=== PATIENT | female | born 1965 | race Caucasian/White ===

== ENCOUNTER 2017-03-03 17:38 | Observation (INO) | payer MEDICAID, OTHER ==
[~2017-03-03] VITALS: Ht 162.6 cm; Wt 103.0 kg
[~2017-03-03 17:38] MED LIST: ALBU6.7H INH; BACL10TA PO; DICL75 PO
[2017-03-03 17:40] VITALS: BP 172/74; PULSE 64; RESP 20; TEMP 98.9; O2SAT 98
--- NOTE | 2017-03-03 19:11 | RADRPT ---
EXAM DATE/TIME: 03/03/2017 18:47 [facility] COMPARISON: CHEST SINGLE AP, May 13, 2016, 22:09. INDICATIONS : Cough; flu like symptoms. MEDICAL HISTORY : None. SURGICAL HISTORY : None. ENCOUNTER: Initial ACUITY: 1 week PAIN SCORE: 0/10 LOCATION: Bilateral chest FINDINGS: A single view of the chest demonstrates the lungs to be symmetrically aerated without evidence of mas s, infiltrate or effusion. The cardiomediastinal contours are unremarkable. Osseous structures are intact. CONCLUSION: No acute disease. No significant change has occurred. Coleman Saavedra MD on March 03, 2017 at 19:01 Board Certified Radiologist. This report was verified electronically.
[2017-03-03] MEDS ORDERED: NITROGLYCERIN 0.4 MG SL 25 TABS/BTL SL ONE (22:00)
[2017-03-03] MEDS ORDERED: ASPIRIN 81 MG CHEW TAB CHEW ONE (22:00)
[2017-03-03] MEDS ORDERED: SODIUM CHLORID 0.9% 500 ML INJ 500 ML IV ONE (22:00)
[2017-03-03] MEDS ORDERED: MECLIZINE HCL 25 MG TAB PO ONE (22:00)
[2017-03-03 22:18] LABS: AUTOMATED NEUTROPHIL # 6.1 TH/MM3 (1.8-7.7); BASOPHIL % 0.5 % (0.0-2.0); EOSINOPHIL # 0.1 TH/MM3 (0-0.4); EOSINOPHIL % 1.4 % (0.0-4.0); HEMATOCRIT 40.6 % (35.0-46.0); HEMO FLAGS DIFF FINAL; LYMPH % 25.8 % (9.0-44.0); LYMPHOCYTE # 2.3 TH/MM3 (1.0-4.8); MEAN CELL VOLUME 80.8 FL (80.0-100.0); MEAN CORPUSCULAR HEMOGLOBIN 27.3 PG (27.0-34.0); MEAN CORPUSCULAR HGB CONC 33.8 % (32.0-36.0); MONO % 4.7 % (0.0-8.0); NEUT % 67.6 % (16.0-70.0); PLATELET COUNT 224 TH/MM3 (150-450); RED BLOOD COUNT 5.02 MIL/MM3 (4.00-5.30)
[2017-03-03 22:41] LABS: ANION GAP 6 MEQ/L (5-15); BICARBONATE 29.9 MEQ/L (21.0-32.0); BLOOD UREA NITROGEN 13 MG/DL (7-18); CHLORIDE 102 MEQ/L (98-107); GLOMERULAR FILTRATION RATE 107 ML/MIN (>89); SODIUM (NA) 138 MEQ/L (136-145)
[2017-03-03 22:45] LABS: CREATINE KINASE 102 U/L (26-192)
[2017-03-03 22:58] LABS: CKMB 0.8 NG/ML (0.5-3.6)
[2017-03-03] MEDS ORDERED: hydrALAZINE HCL 20 MG/ML VIAL IV PUSH ONE (23:00)
[2017-03-03 23:10] VITALS: BP 192/75; PULSE 42; RESP 18; O2SAT 99
[2017-03-03 23:15] VITALS: BP 188/74; PULSE 43; RESP 18; O2SAT 99
[2017-03-03] MEDS ORDERED: ACETAMINOPHEN 500 MG CPLT PO PRN (23:45)
[2017-03-03] MEDS ORDERED: ACETAMINOPHEN/HYDROcodone 325 MG/7.5 MG TAB PO PRN (23:45)
[2017-03-03] MEDS ORDERED: MORPHINE SULFATE 4 MG/ML INJ IV PUSH ONE (23:45)
[2017-03-03] MEDS ORDERED: SODIUM CHLORIDE 0.9% FLUSH 10 ML FLUSH IV FLUSH PRN (23:45)
--- NOTE | 2017-03-03 23:45 | PD ---
HPI Chief Complaint: Chest Pain Time Seen by Provider: 21:40 Travel History International Travel<30 days: No Contact w/Intl Traveler<30days: No Traveled to known affect area: No History of Present Illness HPI Patient is a 51-year-old female who comes in complaining of chest pain. She says she has had a cough for a few days with some shortness of breath. She says today she started to have episodes of dizziness and a few hours ago she developed some left-sided chest pain. She says she was sick last week and had a fever about a week ago, but none since then. She denies nausea or vomiting. She denies any abdominal pain. PFSH Past Medical History Hx Anticoagulant Therapy: No Asthma: Yes Cardiovascular Problems: Yes (bradycardiac) Chemotherapy: No Cerebrovascular Accident: No Diabetes: No Diminished Hearing: No Respiratory: Yes (ASTHMA) Tetanus Vaccination: < 5 Years Influenza Vaccination: No ?: Not Menopausal: No : 9 Para: 6 Miscarriage: 2 : 1 Past Surgical History Appendectomy: Yes Section: Yes (X2) Gynecologic Surgery: Yes (btl 7 years ago) Hysterectomy: Yes Social History Alcohol Use: Yes (social) Tobacco Use: No Substance Use: No Allergies-Medications (Allergen,Severity, Reaction): Coded Allergies: No Known Allergies (Verified , 05/13/16) Reported Meds & Prescriptions Reported Meds & Active Scripts Active No Active Prescriptions or Reported Medications Review of Systems Except as stated in HPI: all other systems reviewed are Neg Eyes: No: Blurred Vision HENT: No: Headaches, Lightheadedness Cardiovascular: Positive: Chest Pain or Discomfort Respiratory: Positive: Cough, Shortness of Breath Gastrointestinal: No: Vomiting, Abdominal Pain Skin: No Rash, No Change in Pigmentation Neurologic: Positive: Weakness Physical Exam Narrative GENERAL: Awake and alert, in no acute distress. SKIN: Focused skin assessment warm/dry. HEAD: Atraumatic. Normocephalic. EYES: Pupils equal and round. No scleral icterus. Extraocular movements intact. ENT: Mucous membranes pink and moist. NECK: Trachea midline. No JVD. CARDIOVASCULAR: Regular rate and rhythm. No murmur appreciated. RESPIRATORY: No accessory muscle use. Clear to auscultation. Breath sounds equal bilaterally. GASTROINTESTINAL: Abdomen soft, non-tender, nondistended. MUSCULOSKELETAL: No obvious deformities. No clubbing. No cyanosis. No edema. NEUROLOGICAL: Awake and alert. No obvious cranial nerve deficits. Motor grossly within normal limits. Normal speech. PSYCHIATRIC: Appropriate mood and affect; insight and judgment normal. Data Data Last Documented VS Vital Signs Date Time Temp Pulse Resp B/P Pulse Ox O2 Delivery O2 Flow Rate FiO2 03/03/17 23:15 43 18 188/74 99 03/03/17 21:31 Room Air 03/03/17 17:40 98.9 Orders Electrocardiogram (03/03/17 18:25) Complete Blood Count With Diff (03/03/17 18:25) Basic Metabolic Panel (Bmp) (03/03/17 18:25) Ckmb (Isoenzyme) Profile (03/03/17 18:25) Troponin I (03/03/17 18:25) Chest, Single Ap (03/03/17 18:25) Iv Access Insert/Monitor (03/03/17 18:25) Ecg Monitoring (03/03/17 18:25) Oxygen Administration (03/03/17:25) Oximetry (03/03/17 18:25) Meclizine (Antivert) (03/03/17 22:00) Aspirin Chew (Aspirin Chew) (03/03/17 22:00) Sodium Chlorid 0.9% 500 Ml Inj (Ns 500 M (03/03/17 22:00) Nitroglycerin Sl (Nitrostat Sl) (03/03/17 22:00) CKMB (03/03/17 21:55) CKMB% (03/03/17 21:55) Hydralazine Inj (Apresoline Inj) (03/03/17 23:00) Activity Bed Rest With Brp (03/03/17 23:43) Vital Signs (Adult) Q4H (03/03/17 23:43) Cardiac Rhythm .As Directed (03/03/17 23:43) ^ Notify Dr: Other .PRN (03/03/17 23:43) ^ Notify Parameters (03/03/17 23:43) Resp Oxygen Nasal Cannula (03/03/17 ) Diet Heart Healthy (03/04/17 Breakfast) Ckmb (Isoenzyme) Profile (03/04/17 01:00) Ckmb (Isoenzyme) Profile (03/04/17 04:00) Troponin I (03/04/17 01:00) Troponin I (03/04/17 04:00) Electrocardiogram (03/04/17 01:00) Electrocardiogram (03/04/17 04:00) ^ Obtain (03/03/17 23:43) Sodium Chloride 0.9% Flush (Ns Flush) (03/03/17 23:45) Sodium Chloride 0.9% Flush (Ns Flush) (03/04/17 09:00) Acetaminophen (Tylenol) (03/03/17 23:45) Acetamin-Hydrocod 325-7.5 Mg ([place] 7.5 (03/03/17 23:45) Maxillofacial Prosthetics Dentist / Telemetry IDA.Q8H (03/03/17 23:43) Admit Order (Ed Use Only) (03/03/17 ) Morphine Inj (Morphine Inj) (03/03/17 23:45) Labs Laboratory Tests Test 03/03/17 21:55 White Blood Count 9.0 TH/MM3 Red Blood Count 5.02 MIL/MM3 Hemoglobin 13.7 GM/DL Hematocrit 40.6 % Mean Corpuscular Volume 80.8 FL Mean Corpuscular Hemoglobin 27.3 PG Mean Corpuscular Hemoglobin 33.8 % Concent Red Cell Distribution Width 15.0 % Platelet Count 224 TH/MM3 Mean Platelet Volume 9.2 FL Neutrophils (%) (Auto) 67.6 % Lymphocytes (%) (Auto) 25.8 % Monocytes (%) (Auto) 4.7 % Eosinophils (%) (Auto) 1.4 % Basophils (%) (Auto) 0.5 % Neutrophils # (Auto) 6.1 TH/MM3 Lymphocytes # (Auto) 2.3 TH/MM3 Monocytes # (Auto) 0.4 TH/MM3 Eosinophils # (Auto) 0.1 TH/MM3 Basophils # (Auto) 0.0 TH/MM3 CBC Comment DIFF FINAL Differential Comment Sodium Level 138 MEQ/L Potassium Level 4.0 MEQ/L Chloride Level 102 MEQ/L Carbon Dioxide Level 29.9 MEQ/L Anion Gap 6 MEQ/L Blood Urea Nitrogen 13 MG/DL Creatinine 0.59 MG/DL Estimat Glomerular Filtration 107 ML/MIN Rate Random Glucose 85 MG/DL Calcium Level 9.2 MG/DL Total Creatine Kinase 102 U/L Creatine Kinase MB 0.8 NG/ML Troponin I LESS THAN 0.02 NG/ML [facility] Medical Decision Making Medical Screen Exam Complete: Yes Emergency Medical Condition: Yes Interpretation(s) ECG shows sinus bradycardia, no ST elevation or depression Differential Diagnosis ACS versus pneumonia versus NSTEMI versus STEMI Narrative Course Patient is a 51-year-old female comes in complaining of dizziness, chest pain, cough, shortness of breath. Exam shows no neurologic abnormalities. IV established, labs sent. 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 Labs show no acute abnormalities. Chest x-ray performed shows no acute abnormalities. Patient given aspirin. Given meclizine. Patient continues to have chest pain. Given 1 dose of nitroglycerin as well as pain medicine. Given hydralazine for high blood pressure. Patient placed in observation for further management. Diagnosis Primary Impression: Chest pain Qualified Code: R07.9 - Chest pain, unspecified type Admitting Information Admitting Physician Requests: Observation Scripts No Active Prescriptions or Reported Meds Condition: Stable Jenise Bird MD Mar 03, 2017 23:45
[2017-03-03 23:54] VITALS: O2SAT 97
[2017-03-04 01:30] VITALS: PULSE 41
[2017-03-04 01:58] LABS: CREATINE KINASE 77 U/L (26-192)
[2017-03-04 04:00] VITALS: BP 116/59; PULSE 47; RESP 20; TEMP 97.1; O2SAT 96
[2017-03-04 05:05] LABS: CREATINE KINASE 90 U/L (26-192)
[2017-03-04] MEDS ORDERED: KETOROLAC TROMETHAMINE 30 MG/ML (IVP) VIAL IVP ONE (07:45)
[2017-03-04 08:09] VITALS: BP 124/60; PULSE 53; RESP 20; TEMP 97.3; O2SAT 93
--- NOTE | 2017-03-04 08:22 | HHI.HP ---
HPI Primary Care Physician No Primary Care Physician Chief Complaint Chest pain History of Present Illness This is a 51-year-old female that presents to the ED via private vehicle complaining of developing a left-sided chest discomfort while she was doing housecleaning. This began yesterday afternoon. She also felt dizzy and nauseous. The discomfort would usually last about 5 seconds, the longest episode lasted about 10 seconds. She was not short of breath and denies diaphoresis. Denies history of CAD. 2 weeks ago she had a cold and had been coughing but that has since resolved. Review of Systems General: Patient denies fevers, chills recent, and recent travel HEENT: Patient denies headache, sore throat, difficulty swallowing. Cardiovascular: Has the chest discomfort as mentioned above. Denies sensation of heart beating rapidly or irregularly. No syncope. Respiratory: Denies shortness of breath or inspirational chest discomfort. Denies coughing wheezing or hemoptysis. GI: Patient was nauseous. Patient denies vomiting, diarrhea, abdominal pain, bloody stools. Musculoskeletal: Patient denies joint pain or edema. Denies calf pain or edema. Neurovascular: Patient denies numbness, tingling, weakness in extremities. Denies headache. She was little dizzy initially with her symptoms yesterday. Endocrine: Denies polyuria and polydipsia. Hematologic: Denies easy bruising. Skin: Denies rash or itching. Past Family Social History Allergies: Coded Allergies: No Known Allergies (Verified , 05/13/16) Past Medical History Denies hypertension, hyperlipidemia, diabetes, and CAD. Past Surgical History , appendectomy, tubal ligation, and hysterectomy. Reported Medications Reported Meds & Active Scripts Active No Active Prescriptions or Reported Medications Active Ordered Medications Current Medications Medications (Trade) Dose Ordered Sig/Graciela Route Start Time Stop Time Status Last Admin (NS Flush) 2 ml UNSCH PRN IV FLUSH 03/03/17 23:45 (NS Flush) 2 ml BID IV FLUSH 03/04/17 09:00 (Tylenol) 500 mg Q4H PRN PO 03/03/17 23:45 ([place] 7.5-325 Mg) 1 tab Q4H PRN PO 03/03/17 23:45 03/04/17 04:01 Family History Denies family history of CAD. Social History Patient does not smoke, use alcohol or illicit drugs. Physical Exam Vital Signs Vital Signs Date Time Temp Pulse Resp B/P Pulse Ox O2 Delivery O2 Flow Rate FiO2 03/04/17 08:09 97.3 53 20 124/60 93 03/04/17 05:03 18 03/04/17 04:00 97.1 47 20 116/59 96 03/04/17 01:30 41 03/03/17 23:54 97 03/03/17 23:15 43 18 188/74 99 03/03/17 23:10 42 18 192/75 99 03/03/17 21:31 99 Room Air 03/03/17 21:25 100 Room Air 03/03/17 17:40 98.9 64 20 172/74 98 Room Air Physical Exam GENERAL: This is a well-nourished, well-developed patient, in no apparent distress. Patient speaks in clear complete sentences. Patient is pleasant. HEENT: Head is atraumatic and normocephalic. Neck is supple without lymphadenopathy and trachea is midline. No JVD or carotid bruits. CARDIOVASCULAR: Regular rate and rhythm without murmurs, gallops, or rubs. RESPIRATORY: There is reproducible left upper chest wall tenderness when palpating the area. This is similar to the discomfort she has been having. Clear to auscultation. Breath sounds equal bilaterally. No wheezes, rales, or rhonchi. No use of accessory muscles. GASTROINTESTINAL: Abdomen is nontender, nondistended. Abdomen soft. No obvious pulsatile mass or bruit. No CVA tenderness. Strong femoral pulses bilaterally. Normal bowel sounds in all quadrants. MUSCULOSKELETAL: Patient is moving upper and lower extremities freely. No calf tenderness or edema, no Homans sign. Strong pulses in upper and lower extremities. NEUROLOGICAL: Patient is alert and oriented. Cranial nerves 2-12 are grossly intact. No focal deficits and speech is clear. SKIN: No rash and turgor is normal Laboratory Laboratory Tests Test 03/03/17 03/04/17 03/04/17 21:55 01:00 03:55 White Blood Count 9.0 Red Blood Count 5.02 Hemoglobin 13.7 Hematocrit 40.6 Mean Corpuscular Volume 80.8 Mean Corpuscular Hemoglobin 27.3 Mean Corpuscular Hemoglobin 33.8 Concent Red Cell Distribution Width 15.0 Platelet Count 224 Mean Platelet Volume 9.2 Neutrophils (%) (Auto) 67.6 Lymphocytes (%) (Auto) 25.8 Monocytes (%) (Auto) 4.7 Eosinophils (%) (Auto) 1.4 Basophils (%) (Auto) 0.5 Neutrophils # (Auto) 6.1 Lymphocytes # (Auto) 2.3 Monocytes # (Auto) 0.4 Eosinophils # (Auto) 0.1 Basophils # (Auto) 0.0 CBC Comment DIFF FINAL Differential Comment Sodium Level 138 Potassium Level 4.0 Chloride Level 102 Carbon Dioxide Level 29.9 Anion Gap 6 Blood Urea Nitrogen 13 Creatinine 0.59 Estimat Glomerular Filtration 107 Rate Random Glucose 85 Calcium Level 9.2 Total Creatine Kinase 102 77 90 Creatine Kinase MB 0.8 Troponin I LESS THAN 0.02 LESS THAN 0.02 LESS THAN 0.02 Result Diagram: 03/03/17215403/03/172154 Imaging Last 24 hours Impressions Chest X-Ray 03/03/17 182 Signed Impressions: Service Date/Time: Friday, March 03, 2017 18:47 - CONCLUSION: No acute disease. No significant change has occurred. Coleman Saavedra MD Course EKGs have been sinus bradycardia without significant ST segment depressions or elevations. Assessment and Plan Assessment and Plan * Atypical chest pain: Patient has had serial cardiac enzymes and EKGs for ruling out purposes. She has been seen by Dr. Sonu Camacho of cardiology in the chest pain center. She will undergo a Lexiscan myocardial perfusion stress test and will likely be discharged home if the stress test were to be nonischemic. Rhett Wolf Mar 04, 2017 08:22
[2017-03-04 08:50] VITALS: O2SAT 94
[2017-03-04] MEDS ORDERED: SODIUM CHLORIDE 0.9% FLUSH 10 ML FLUSH IV FLUSH SCH (09:00)
[2017-03-04] MEDS ORDERED: REGADENOSON INJ 0.4 MG/5 ML SYR ONE (11:01)
--- NOTE | 2017-03-04 12:28 | RADRPT ---
EXAM DATE/TIME: 03/04/2017 10:38 [facility] COMPARISON: No previous studies available for comparison. INDICATIONS : Angina. DOSE: 35 mCi Tc99m Myoview at stress. 10.9 mCi Tc99m Myoview at rest. 0.4 mg Lexiscan STRESS SYMPTOMS: Burning sensation in stomach. EJECTION FRACTION: 55% MEDICAL HISTORY : Hypertension. SURGICAL HISTORY : None ENCOUNTER: Initial ACUITY: 1 day PAIN SCALE: 2/10 LOCATION: Left chest pain TECHNIQUE: The patient underwent pharmacologic stress with infusion of prescribed dose. Continuous ECG tracing was monitored during stress. Gated SPECT imaging was performed after stress and conventional SPECT i maging was performed at rest. The examination was performed on a SPECT/CT scanner, both attenuation and non-corrected datasets were reviewed. FINDINGS: DISTRIBUTION: The maximum perfused segment at stress is in the posterior basal wall. PERFUSION STUDY: There is mildly diminished relative perfusion involving the apex. No evidence of ischemia. GATED STUDY: There is intact wall motion and thickening without hypokinetic or dyskinetic segments. CONCLUSION: No significant fixed or reversible perfusion abnormalities. Satisfactory LV function.. RISK CATEGORY: Low (<1% Annual Mortality Rate) Peewee Cantu MD on March 04, 2017 at 12:16 Board Certified Radiologist. This report was verified electronically.
--- NOTE | 2017-03-04 13:11 | HHI.DCPOC ---
Discharge Care Plan Diagnosis: (1) Chest pain, atypical Goals to Promote Your Health * To prevent worsening of your condition and complications * To maintain your health at the optimal level Directions to Meet Your Goals Take your medications as prescribed Follow your dietary instruction Follow activity as directed Keep your appointments as scheduled Take your immunizations and boosters as scheduled If your symptoms worsen call your PCP, if no PCP go to Urgent Care Center or Emergency Room Smoking is Dangerous to Your Health. Avoid second hand smoke Call the 24-hour hour crisis hotline for domestic abuse at Rhett Wolf Mar 04, 2017 13:11
--- NOTE | 2017-03-04 13:42 | EKG ---
Date Performed: 03/04/2017 Time Performed: 01:03:20 PTAGE: 51 years EKG: SINUS BRADYCARDIA LOW QRS VOLTAGE IN PRECORDIAL LEADS BORDERLINE ECG PREVIOUS TRACING : 03/03/2017 18.07 Since previous tracing, no significant change noted DOCTOR: Sonu Camacho Interpretating Date/Time 03/04/2017 13:42:28
--- NOTE | 2017-03-04 13:46 | EKG ---
Date Performed: 03/03/2017 Time Performed: 18:07:04 PTAGE: 51 years EKG: SINUS BRADYCARDIA LOW QRS VOLTAGE IN PRECORDIAL LEADS BORDERLINE ECG INTERPRETATION BASED O N A DEFAULT AGE OF 40 YEARS PREVIOUS TRACING : 07/29/2014 10.57 Since previous tracing, no significant change noted DOCTOR: Sonu Camacho Interpretating Date/Time 03/04/2017 13:45:08
--- NOTE | 2017-03-04 13:48 | EKG ---
Date Performed: 03/04/2017 Time Performed: 03:57:33 PTAGE: 51 years EKG: SINUS BRADYCARDIA LOW QRS VOLTAGE IN PRECORDIAL LEADS BORDERLINE ECG PREVIOUS TRACING : 03/04/2017 01.03 Since previous tracing, no significant change noted DOCTOR: Sonu Camacho Interpretating Date/Time 03/04/2017 13:47:12
--- NOTE | 2017-03-04 13:48 | TR ---
Date Performed: 03/04/2017 Time Performed: 11:06:49 DOCTOR: Sonu Camacho DRUG LIST: CLINICAL HISTORY: CHE REASON FOR TEST: REASON FOR ENDING: OBSERVATION: CONCLUSION: Lexiscan stress test was performed under standard four minute protocol. Radionuclid e was injected one minute prior to ending the test. No electrocardiographic abormalities were present to suggest ischemia. Nuclear imaging and interpretation are pending. COMMENTS:
== END 2017-03-04 15:50 | disposition home or self-care (01) ==
LOC: NEPE 17:38 → NEDA 23:46 → NEPGCP 03-04 00:23
PROVIDERS: ADMIT Internal Medicine Cardiovascular Disease; ATTEND Internal Medicine Cardiovascular Disease
DX: R07.89 Other chest pain (principal); R06.02 Shortness of breath; R42 Dizziness and giddiness; I10 Essential (primary) hypertension; J45.909 Unspecified asthma, uncomplicated
CPT/HCPCS: 71010; 78452; 80048; 82550; 82552; 84484; 85025; 93005; 93017; 96374; 96375; 99285; A9502; G0378; J0360; J1885; J2270; J2785; J7040

== ENCOUNTER 2018-03-24 09:03 | Observation (INO) | payer MEDICAID ==
[2018-03-24] VITALS (10 sets, daily range): BP systolic 104–135; BP diastolic 52–75; PULSE 44–55; RESP 16–20; TEMP 97.1–98.1; O2SAT 94–99
[2018-03-24] MEDS ORDERED: TRAM50TA PO (09:36)
--- NOTE | 2018-03-24 10:09 | PD ---
HPI Chief Complaint: Dizziness Time Seen by Provider: 09:49 Travel History International Travel<30 days: No Contact w/Intl Traveler<30days: No Traveled to known affect area: No History of Present Illness HPI 52-year-old female complains of dizziness and nausea. Patient states that his symptoms started this morning. Patient states that she has spinning sensation. Patient states that she has nausea with the dizziness. Patient denies any headache. Patient denies any visual change. Patient denies any neck pain. Patient denies any chest pain or shortness of breath. Patient denies abdominal pain. Patient denies any dysuria frequency. Patient denies any fever chills. Recent states that she has intermittent coughing congestion recently. Patient states that she has been eating well. Patient status post hysterectomy. Patient denies alcohol or drug abuse. Patient denies history hypertension and bradycardia. Patient has history chronic back pain. 11:10 AM. Patient now complains of chest pain. Patient states that his chest pain started about an hour ago. Patient states the chest and substernal pressure without radiation. Patient denies palpitation diaphoresis. Patient has history of recurrent chest pain for the past year. Patient was seen in emergency room and admitted to chest pain center February of last year. Stress test were normal at that time. Patient has not follow-up with any physician since then. Patient states that she has recurrent intermittent chest pain since then. PFSH Past Medical History Hx Anticoagulant Therapy: No Asthma: Yes Heart Rhythm Problems: Yes (almita) Cardiac Catheterization: No Cardiovascular Problems: Yes (bradycardiac) High Cholesterol: No Chemotherapy: No Congestive Heart Failure: No Cerebrovascular Accident: No Diabetes: No Diminished Hearing: No Hypertension: Yes Musculoskeletal: Yes (CHRONIC BACK PAIN - SLIP DISC TO LUMBAR AREA DUE TO FALL ) Respiratory: Yes (ASTHMA) Tetanus Vaccination: Unknown Influenza Vaccination: No ?: Not Menopausal: No : 9 Para: 6 Miscarriage: 2 : 1 Past Surgical History Appendectomy: Yes Section: Yes (X2) Coronary Artery Bypass Graft: No Gynecologic Surgery: Yes (BILATERAL TUBAL LIGATION 7 years ago) Hysterectomy: Yes Social History Alcohol Use: Yes (social) Tobacco Use: Yes Substance Use: No Allergies-Medications (Allergen,Severity, Reaction): Coded Allergies: No Known Allergies (Verified , 05/13/16) Reported Meds & Prescriptions Reported Meds & Active Scripts Active Reported Tramadol (Tramadol HCl) 50 Mg Tab 100 Mg PO Q6H PRN Review of Systems General / Constitutional: No: Fever Eyes: No: Visual changes HENT: Positive: Lightheadedness, No: Headaches Cardiovascular: No: Chest Pain or Discomfort Respiratory: No: Shortness of Breath Gastrointestinal: Positive: Nausea, No: Abdominal Pain Genitourinary: No: Dysuria Musculoskeletal: No: Pain Skin: No Rash Neurologic: No: Weakness Psychiatric: No: Depression Endocrine: No: Polydipsia Hematologic/Lymphatic: No: Easy Bruising Physical Exam Narrative GENERAL: Well-nourished, well-developed patient. SKIN: Focused skin assessment warm/dry. HEAD: Normocephalic. EYES: No scleral icterus. No injection or drainage. NECK: Supple, trachea midline. No JVD or lymphadenopathy. CARDIOVASCULAR: Regular rate and rhythm without murmurs, gallops, or rubs. RESPIRATORY: Breath sounds equal bilaterally. No accessory muscle use. GASTROINTESTINAL: Abdomen soft, non-tender, nondistended. MUSCULOSKELETAL: No cyanosis, or edema. BACK: Nontender without obvious deformity. No CVA tenderness. Neurologic exam normal. Data Data Last Documented VS Vital Signs Date Time Temp Pulse Resp B/P (MAP) Pulse Ox O2 Delivery O2 Flow Rate FiO2 03/24/18 10:19 49 16 128/61 (83) 99 Room Air 03/24/18 09:20 97.1 Orders Orders Complete Blood Count With Diff (03/24/18 09:56) Basic Metabolic Panel (Bmp) (03/24/18 09:56) Urinalysis - C+S If Indicated (03/24/18 09:56) Influenzae A/B Antigen (03/24/18 09:56) Chest, Single Ap (03/24/18 09:56) Iv Access Insert/Monitor (03/24/18 09:56) Ecg Monitoring (03/24/18 09:56) Oximetry (03/24/18 09:56) Meclizine (Antivert) (03/24/18 10:15) Ondansetron Inj (Zofran Inj) (03/24/18 10:15) Electrocardiogram (03/24/18 09:42) Creatine Kinase (Cpk) (03/24/18 11:10) Troponin I (03/24/18 11:10) Labs Laboratory Tests Test 03/24/18 09:15 03/24/18 09:51 White Blood Count 8.3 TH/MM3 Red Blood Count 4.89 MIL/MM3 Hemoglobin 13.4 GM/DL Hematocrit 40.4 % Mean Corpuscular Volume 82.7 FL Mean Corpuscular Hemoglobin 27.4 PG Mean Corpuscular Hemoglobin Concent 33.1 % Red Cell Distribution Width 15.6 % Platelet Count 201 TH/MM3 Mean Platelet Volume 8.6 FL Neutrophils (%) (Auto) 77.6 % Lymphocytes (%) (Auto) 16.9 % Monocytes (%) (Auto) 3.8 % Eosinophils (%) (Auto) 1.2 % Basophils (%) (Auto) 0.5 % Neutrophils # (Auto) 6.4 TH/MM3 Lymphocytes # (Auto) 1.4 TH/MM3 Monocytes # (Auto) 0.3 TH/MM3 Eosinophils # (Auto) 0.1 TH/MM3 Basophils # (Auto) 0.0 TH/MM3 CBC Comment DIFF FINAL Differential Comment Blood Urea Nitrogen 19 MG/DL Creatinine 0.72 MG/DL Random Glucose 91 MG/DL Calcium Level 9.1 MG/DL Sodium Level 140 MEQ/L Potassium Level 3.7 MEQ/L Chloride Level 105 MEQ/L Carbon Dioxide Level 28.0 MEQ/L Anion Gap 7 MEQ/L Estimat Glomerular Filtration Rate 85 ML/MIN Total Creatine Kinase 112 U/L Troponin I LESS THAN 0.02 NG/ML Urine Color YELLOW Urine Turbidity HAZY Urine pH 6.0 Urine Specific [place] 1.023 Urine Protein TRACE mg/dL Urine Glucose (UA) NEG mg/dL Urine Ketones NEG mg/dL Urine Occult Blood NEG Urine Nitrite NEG Urine Bilirubin NEG Urine Urobilinogen LESS THAN 2.0 MG/DL Urine Leukocyte Esterase SMALL Urine RBC 1 /hpf Urine WBC 5 /hpf Urine Squamous Epithelial Cells 25 /hpf Urine Hyaline Casts 2 /lpf Urine Mucus FEW /lpf Microscopic Urinalysis Comment CULT NOT INDICATED MDM Medical Decision Making Medical Screen Exam Complete: Yes Emergency Medical Condition: Yes Interpretation(s) 11:01 AM. Chest x-ray shows borderline cardiomegaly. CBC within normal limits. BMP within normal limits. UA negative. 11:59 AM. Cardiac enzymes are normal. EKG shows sinus bradycardia rate of 49. Nonspecific ST-T wave change. Patient has history of bradycardia. Differential Diagnosis Differential diagnosis including vertigo, electrolyte imbalance, dehydration, arrhythmia, anemia. Narrative Course 52-year-old female with dizziness and nausea. Meclizine 25 mg p.o. given. Zofran 4 mg IV given. Diagnosis Primary Impression: Acute onset of severe vertigo Additional Impression: Chest pain Qualified Codes: R07.9 - Chest pain, unspecified Marquis Potter MD Mar 24, 2018 10:09
[2018-03-24] MEDS ORDERED: MECLIZINE HCL 25 MG TAB PO ONE (10:15)
[2018-03-24] MEDS ORDERED: ONDANSETRON HCL 4 MG/2 ML VIAL IV PUSH ONE (10:15)
[2018-03-24 10:16] LABS: AUTOMATED NEUTROPHIL # 6.4 TH/MM3 (1.8-7.7); BASOPHIL % 0.5 % (0.0-2.0); EOSINOPHIL # 0.1 TH/MM3 (0-0.4); EOSINOPHIL % 1.2 % (0.0-4.0); HEMATOCRIT 40.4 % (35.0-46.0); HEMOGLOBIN 13.4 GM/DL (11.6-15.3); LYMPH % 16.9 % (9.0-44.0); LYMPHOCYTE # 1.4 TH/MM3 (1.0-4.8); MEAN CELL VOLUME 82.7 FL (80.0-100.0); MEAN CORPUSCULAR HEMOGLOBIN 27.4 PG (27.0-34.0); MEAN CORPUSCULAR HGB CONC 33.1 % (32.0-36.0); MEAN PLATELET VOLUME 8.6 FL (7.0-11.0); MONO % 3.8 % (0.0-8.0); MONOCYTE # 0.3 TH/MM3 (0-0.9); NEUT % 77.6 % (16.0-70.0); PLATELET COUNT 201 TH/MM3 (150-450); RED BLOOD COUNT 4.89 MIL/MM3 (4.00-5.30); RED CELL DISTRIBUTION WIDTH 15.6 % (11.6-17.2); WHITE BLOOD COUNT 8.3 TH/MM3 (4.0-11.0)
[2018-03-24 10:23] LABS: BILIRUBIN, URINE NEG (NEG); BLOOD, URINE NEG (NEG); GLUCOSE,URINE NEG (NEG); HYALINE CAST, URINE 2 /lpf (RARE); KETONE, URINE NEG (NEG); MUCUS URINE FEW /lpf (OCC); NITRITE,URINE NEG (NEG); SQUAMOUS EPITHELIAL CELL URINE 25 /hpf (0-5); URINE COLOR YELLOW (YELLW/STRAW); URINE LEUKOCYTE ESTERASE SMALL (NEG)
[2018-03-24 10:33] LABS: CALCIUM 9.1 MG/DL (8.5-10.1); CREATININE 0.72 MG/DL (0.50-1.00)
--- NOTE | 2018-03-24 10:55 | RADRPT ---
EXAM DATE/TIME: 03/24/2018 10:08 [facility] COMPARISON: No previous studies available for comparison. INDICATIONS : Shortness of breath. MEDICAL HISTORY : None. SURGICAL HISTORY : None. ENCOUNTER: Initial ACUITY: 1 day PAIN SCORE: 0/10 LOCATION: Bilateral chest FINDINGS: A single view of the chest demonstrates the lungs to be symmetrically aerated without evidence of mas s, infiltrate or effusion. The cardiac silhouette is borderline enlarged. Osseous structures are int act. CONCLUSION: Normal examination except for borderline cardiomegaly. Tadeo Sanchez MD on March 24, 2018 at 10:52 Board Certified Radiologist. This report was verified electronically.
[2018-03-24 11:35] LABS: TROPONIN I LESS THAN 0.02 NG/ML (0.02-0.05)
[2018-03-24] MEDS ORDERED: IOHEXOL 350 MG/ML 50 ML BTL (for Cath Lab) OTHER ONE (14:33)
[2018-03-24] MEDS ORDERED: ONDANSETRON HCL 4 MG/2 ML VIAL IV PUSH PRN (14:45)
[2018-03-24] MEDS ORDERED: SODIUM CHLORIDE 0.9% FLUSH 10 ML FLUSH IV FLUSH PRN (14:45)
--- NOTE | 2018-03-24 15:16 | HHI.HP ---
HPI Primary Care Physician No Primary Care Physician Chief Complaint Chest pain History of Present Illness This is a 52-year-old female the presents to ED with a complaint of chest discomfort. She states that she was awoken around midnight last night with a chest pressure just left of the center of her chest. Is been there constantly however the intensity waxes and wanes. Worse level was 8 out of 10. Current level is a 5 out of 10. Little shortness breath and nausea. No diaphoresis. She also states that she has had a cough for the past week. It has been a grayish color productive cough but it has been improving the last couple days. Has had no fever. Denies recent travel. Denies history of CAD. States she has had a stress test before and upon reviewing records she had a nonischemic Lexiscan March 04, 2017 at this facility with an EF of 55%. Review of Systems General: Patient denies fevers, chills, and recent travel. HEENT: Patient denies headache, sore throat, difficulty swallowing. Cardiovascular: Has the chest discomfort as mentioned above. Denies sensation of heart beating rapidly or irregularly. No syncope. Denies diaphoresis. Respiratory: She was short of breath. She had a grayish color productive cough but that has started to diminish. Denies inspirational chest discomfort. Denies wheezing or hemoptysis. GI: Has felt nauseous. Patient denies vomiting, diarrhea, abdominal pain, bloody stools. Musculoskeletal: Chronic low back pain. Patient denies joint pain or edema. Denies calf pain or edema. Neurovascular: Patient denies numbness, tingling, weakness in extremities. Denies headache. Endocrine: Denies polyuria and polydipsia. Hematologic: Denies easy bruising. Skin: Denies rash or itching. Past Family Social History Allergies: Coded Allergies: No Known Allergies (Verified , 05/13/16) Past Medical History Chronic low back pain. Denies hypertension, hyperlipidemia, diabetes, and CAD. Past Surgical History , appendectomy, tubal ligation, and hysterectomy. Reported Medications Reported Meds & Active Scripts Active Reported Tramadol (Tramadol HCl) 50 Mg Tab 100 Mg PO Q6H PRN Active Ordered Medications Current Medications Medications (Trade) Dose Ordered Sig/Graciela Route Start Time Stop Time Status Last Admin (NS Flush) 2 ml UNSCH PRN IV FLUSH 03/24/18 14:45 (NS Flush) 2 ml BID IV FLUSH 03/24/18 21:00 (Tylenol) 500 mg Q4H PRN PO 03/24/18 14:45 (Zofran Inj) 4 mg Q6H PRN IV PUSH 03/24/18 14:45 Family History Denies family history of CAD. Social History Lifetime non-smoker. Denies illicit drug use. Has occasional alcohol. 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 Physical Exam Vital Signs Vital Signs Date Time Temp Pulse Resp B/P (MAP) Pulse Ox O2 Delivery O2 Flow Rate FiO2 03/24/18 10:19 49 16 128/61 (83) 99 Room Air 03/24/18 09:20 97.1 53 18 135/52 (79) 98 Physical Exam GENERAL: This is a well-nourished, well-developed patient, in no apparent distress. Patient speaks in clear complete sentences. Patient is pleasant. HEENT: Head is atraumatic and normocephalic. Neck is supple without lymphadenopathy and trachea is midline. No JVD or carotid bruits. CARDIOVASCULAR: Regular rate and rhythm without murmurs, gallops, or rubs. RESPIRATORY: Clear to auscultation. Breath sounds equal bilaterally. No wheezes , rales, or rhonchi. Chest wall is tender and pressing on the area worsens the discomfort she has been having. No use of accessory muscles. GASTROINTESTINAL: Abdomen is nontender, nondistended. Abdomen soft. No obvious pulsatile mass or bruit. No CVA tenderness. Strong femoral pulses bilaterally. Normal bowel sounds in all quadrants. MUSCULOSKELETAL: Patient is moving upper and lower extremities freely. No calf tenderness or edema, no Homans sign. Strong pulses in upper and lower extremities. NEUROLOGICAL: Patient is alert and oriented. Cranial nerves 2-12 are grossly intact. No focal deficits and speech is clear. SKIN: No rash and turgor is normal. Laboratory Laboratory Tests Test 03/24/18 09:15 03/24/18 09:51 03/24/18 14:30 White Blood Count 8.3 Red Blood Count 4.89 Hemoglobin 13.4 Hematocrit 40.4 Mean Corpuscular Volume 82.7 Mean Corpuscular Hemoglobin 27.4 Mean Corpuscular Hemoglobin Concent 33.1 Red Cell Distribution Width 15.6 Platelet Count 201 Mean Platelet Volume 8.6 Neutrophils (%) (Auto) 77.6 Lymphocytes (%) (Auto) 16.9 Monocytes (%) (Auto) 3.8 Eosinophils (%) (Auto) 1.2 Basophils (%) (Auto) 0.5 Neutrophils # (Auto) 6.4 Lymphocytes # (Auto) 1.4 Monocytes # (Auto) 0.3 Eosinophils # (Auto) 0.1 Basophils # (Auto) 0.0 CBC Comment DIFF FINAL Differential Comment Blood Urea Nitrogen 19 Creatinine 0.72 Random Glucose 91 Calcium Level 9.1 Sodium Level 140 Potassium Level 3.7 Chloride Level 105 Carbon Dioxide Level 28.0 Anion Gap 7 Estimat Glomerular Filtration Rate 85 Total Creatine Kinase 112 Troponin I LESS THAN 0.02 Urine Color YELLOW Urine Turbidity HAZY Urine pH 6.0 Urine Specific [place] 1.023 Urine Protein TRACE Urine Glucose (UA) NEG Urine Ketones NEG Urine Occult Blood NEG Urine Nitrite NEG Urine Bilirubin NEG Urine Urobilinogen LESS THAN 2.0 Urine Leukocyte Esterase SMALL Urine RBC 1 Urine WBC 5 Urine Squamous Epithelial Cells 25 Urine Hyaline Casts 2 Urine Mucus FEW Microscopic Urinalysis Comment CULT NOT INDICATED Date/Time Source Procedure Growth Status 03/24/18 09:55 Nasal Washing Influenza Types A,B Antigen (FRANKLY[place]) - Final NEGATIVE FOR FLU A AND B ANTIGEN.... Complete Result Diagram: 03/24/1815 03/24/18 0915 Imaging Last 72 hours Impressions Chest X-Ray 03/24/18 0956 Signed Impressions: Service Date/Time: February 10:08 - CONCLUSION: Normal examination except for borderline cardiomegaly. Tadeo Sanchez MD Course Initial EKG is sinus bradycardia with nonspecific ST-T changes. Caprini VTE Risk Assessment Caprini VTE Risk Assessment: No/Low Risk (score <= 1) Caprini Risk Assessment Model Point Value = 1 Point Value = 2 Point Value = 3 Point Value = 5 Age 41-60 Minor surgery BMI > 25 kg/m2 Swollen legs Varicose veins or History of unexplained or recurrent spontaneous Oral contraceptives or hormone replacement Sepsis (< 1 month) Serious lung disease, including pneumonia (< 1 month) Abnormal pulmonary function Acute myocardial infarction Congestive heart failure (< 1 month) History of inflammatory bowel disease Medical patient at bed rest Age 61-74 Arthroscopic surgery Major open surgery (> 45 min) Laparoscopic surgery (> 45 min) Malignancy Confined to bed (> 72 hours) Immobilizing plaster cast Central venous access Age >= 75 History of VTE Family history of VTE Factor V Leiden Prothrombin [id number] Lupus anticoagulant Anticardiolipin antibodies Elevated serum homocysteine Heparin-induced thrombocytopenia Other congenital or acquired thrombophilia Stroke (< 1 month) Elective arthroplasty Hip, pelvis, or leg fracture Acute spinal cord injury (< 1 month) Prophylaxis Regimen Total Risk Factor Score Risk Level Prophylaxis Regimen 0-1 Low Early ambulation 2 Moderate Order ONE of the following: *Sequential Compression Device (SCD) *Heparin 5000 units SQ BID 3-4 Higher Order ONE of the following medications: *Heparin 5000 units SQ TID *Enoxaparin/Lovenox 40 mg SQ daily (WT < 150 kg, CrCl > 30 mL/min) *Enoxaparin/Lovenox 30 mg SQ daily (WT < 150 kg, CrCl > 10-29 mL/min) *Enoxaparin/Lovenox 30 mg SQ BID (WT < 150 kg, CrCl > 30 mL/min) AND/OR *Sequential Compression Device (SCD) 5 or more Highest Order ONE of the following medications: *Heparin 5000 units SQ TID (Preferred with Epidurals) *Enoxaparin/Lovenox 40 mg SQ daily (WT < 150 kg, CrCl > 30 mL/min) *Enoxaparin/Lovenox 30 mg SQ daily (WT < 150 kg, CrCl > 10-29 mL/min) *Enoxaparin/Lovenox 30 mg SQ BID (WT < 150 kg, CrCl > 30 mL/min) AND *Sequential Compression Device (SCD) Assessment and Plan Assessment and Plan * Chest pain: Patient will continue to have serial cardiac enzymes and EKGs were ruling out purposes. She will be seen by Dr. Patel of cardiology in the chest pain center. If she rules out she will then have a Lexiscan in the morning. Patient will be discharged home if her stress test is nonischemic. She will be given injection of Toradol for the chest wall discomfort. Patient to follow-up PCP after discharge and return to ED for interval issues. Patient is stable at this time. She is agreeable to this plan. Rhett Wolf Mar 24, 2018 15:16
[2018-03-24 15:22] LABS: TROPONIN I LESS THAN 0.02 NG/ML (0.02-0.05)
[2018-03-24] MEDS ORDERED: ACETAMINOPHEN/HYDROcodone 325 MG/7.5 MG TAB PO PRN (15:30)
[2018-03-24] MEDS ORDERED: RESP: ALBUTEROL 2.5 MG/IPRATROPIUM 0.5 MG NEB (PRN) INH (15:30)
[2018-03-24] MEDS ORDERED: cloNIDine HCL 0.1 MG TAB PO PRN (15:30)
--- NOTE | 2018-03-24 16:33 | EKG ---
Date Performed: 03/24/2018 Time Performed: 09:42:29 PTAGE: 52 years EKG: SINUS BRADYCARDIA LOW QRS VOLTAGE IN PRECORDIAL LEADS BORDERLINE ECG PREVIOUS TRACING : 03/04/2017 03.57 Since the previous tracing, no significant change noted DOCTOR: Kirby Monson Interpretating Date/Time 03/24/2018 16:29:08
[2018-03-24] MEDS: PANTOPRAZOLE SOD 40 MG DELAYED RELEASE TAB PO SCH (17:27)
[2018-03-24 18:59] LABS: TROPONIN I LESS THAN 0.02 NG/ML (0.02-0.05)
[2018-03-24] MEDS: SODIUM CHLORIDE 0.9% FLUSH 10 ML FLUSH IV FLUSH SCH (20:16)
[2018-03-24] MEDS: ACETAMINOPHEN 500 MG CPLT PO PRN (20:20)
[2018-03-25] VITALS (8 sets, daily range): BP systolic 111–137; BP diastolic 54–64; PULSE 48–57; RESP 16–18; TEMP 97.6–98.5; O2SAT 92–98
[2018-03-25] MEDS ORDERED: REGADENOSON INJ 0.4 MG/5 ML SYR ONE (09:17)
[2018-03-25] MEDS: PANTOPRAZOLE SOD 40 MG DELAYED RELEASE TAB PO SCH (10:57)
[2018-03-25] MEDS: SODIUM CHLORIDE 0.9% FLUSH 10 ML FLUSH IV FLUSH SCH ×2 (10:58→21:30)
--- NOTE | 2018-03-25 11:18 | RADRPT ---
EXAM DATE/TIME: 03/25/2018 09:02 [facility] COMPARISON: MYOCARDIAL PERF PHARM SPECT, GATED W/EF, March 04, 2017, 10:38. INDICATIONS : Substernal chest pain with dyspnea and nausea. Angina. DOSE: 35 mCi Tc99m Myoview at stress. 11.1 mCi Tc99m Myoview at rest. 0.4 mg Lexiscan STRESS SYMPTOMS: Short of breath and midchest pains. EJECTION FRACTION: 63% MEDICAL HISTORY : None SURGICAL HISTORY : Tubal ligation. Appendectomy. Hysterectomy. ENCOUNTER: Initial ACUITY: 2 days PAIN SCALE: 7/10 LOCATION: Substernal chest TECHNIQUE: The patient underwent pharmacologic stress with infusion of prescribed dose. Continuous ECG tracing was monitored during stress. Gated SPECT imaging was performed after stress and conventional SPECT i maging was performed at rest. The examination was performed on a SPECT/CT scanner, both attenuation and non-corrected datasets were reviewed. FINDINGS: DISTRIBUTION: The maximum perfused segment at stress is in the mid posterior wall. PERFUSION STUDY: Within the septum is clearly better perfusion at rest than stress. On 4-5 consecutive images there is at least 2 color change suspicious for ischemia GATED STUDY: There is intact wall motion and thickening without hypokinetic or dyskinetic segments. CONCLUSION: There may be some ischemia in the mid to lower septal region despite normal ejection fraction and wal l motion. RISK CATEGORY: Low (<1% Annual Mortality Rate) Tadeo Sanchez MD on March 25, 2018 at 11:13 Board Certified Radiologist. This report was verified electronically.
--- NOTE | 2018-03-25 12:49 | TR ---
Date Performed: 03/25/2018 Time Performed: 09:27:46 DOCTOR: Roger Patel DRUG LIST: CLINICAL HISTORY: CHESS REASON FOR TEST: REASON FOR ENDING: OBSERVATION: CONCLUSION: COMMENTS: Lexiscan stress test was performed under standard four minute protocol. Radionuclide was injected one minute prior to ending the test. No electrocardiographic abormalities were present t o suggest ischemia. Nuclear imaging and interpretation are pending.
[2018-03-25] MEDS: amLODIPine BESYLATE 5 MG TAB PO SCH (12:57)
[2018-03-25] MEDS: SODIUM CHLOR 0.9% 1000 ML INJ 1,000 ML IV SCH ×3 (12:57→21:30)
--- NOTE | 2018-03-25 13:48 | EKG ---
Date Performed: 03/24/2018 Time Performed: 14:39:53 PTAGE: 52 years EKG: SINUS BRADYCARDIA LOW QRS VOLTAGE IN PRECORDIAL LEADS NONSPECIFIC ST & T-WAVE ABNORMALITY B ORDERLINE ECG PREVIOUS TRACING : 03/24/2018 09.42 Since the previous tracing, no significant change noted DOCTOR: Sonu Camacho Interpretating Date/Time 03/25/2018 13:45:11
--- NOTE | 2018-03-25 13:48 | EKG ---
Date Performed: 03/24/2018 Time Performed: 17:45:20 PTAGE: 52 years EKG: SINUS BRADYCARDIA LOW QRS VOLTAGE IN PRECORDIAL LEADS INCOMPLETE RIGHT BUNDLE BRANCH BLOCK BORDERLINE ECG PREVIOUS TRACING : 03/24/2018 14.39 Since the previous tracing, no significant change noted DOCTOR: Sonu Camacho Interpretating Date/Time 03/25/2018 13:45:18
[2018-03-25] MEDS ORDERED: NITROGLYCERIN 2% OINT 1 GM PACKET TOPICAL SCH (14:00)
[2018-03-25] MEDS ORDERED: VERAPAMIL HCL 5 MG/2 ML VIAL ONE (14:25)
[2018-03-25] MEDS ORDERED: HEPARIN SODIUM - IV 10,000 UNITS/10 ML VIAL ONE (14:25)
[2018-03-25] MEDS ORDERED: HEPARIN-NS/PF FLUSH BAG 1,000 ML IV FLUSH ONE (14:25)
[2018-03-25] MEDS ORDERED: LIDOCAINE HCL 1% PF 30 ML VIAL ONE (14:28)
--- NOTE | 2018-03-25 14:34 | HHI.PR ---
Subjective Remarks Follow up on patient with chest pain. Patient seen and examined. Patient continues to have dull chest discomfort, dyspnea and nausea. She underwent a MPS showing there may be some ischemia in the mid to lower septal region despite normal ejection fraction and wall motion. Cardiology has been consulted and patient is scheduled to undergo cardiac catheterization later today. She denies any dizziness, lightheadedness or vision changes. She denies any vomiting or abdominal pain. Patient has a recent injury to her low back that occurred while at work is having some lower back discomfort at this time. She denies any bowel or bladder problems. Objective Vitals Vital Signs Date Time Temp Pulse Resp B/P (MAP) Pulse Ox O2 Delivery O2 Flow Rate FiO2 03/25/18 11:53 98.5 51 18 121/54 (76) 98 03/25/18 07:58 95 21 03/25/18 07:45 98.2 50 18 130/63 (85) 94 03/25/18 04:01 97.7 48 16 125/56 (79) 92 03/25/18 03:28 55 03/25/18 00:40 98.2 48 16 111/55 (73) 95 03/25/18 00:05 49 03/24/18 21:35 98.1 53 18 116/55 (75) 95 03/24/18 21:23 18 03/24/18 20:12 98.0 52 16 104/53 (70) 95 03/24/18 20:05 51 03/24/18 20:00 97 21 03/24/18 18:18 55 03/24/18 15:38 97.6 46 20 132/60 (84) 94 03/24/18 15:15 I/O 03/24/18 03/24/18 03/24/18 03/25/18 03/25/18 03/25/18 07:00 15:00 23:00 07:00 15:00 23:00 Intake Total 240 ml Balance 240 ml Intake Oral 240 ml Result Diagram: 03/24/18 0915 03/24/18 0915 Imaging Last Impressions Myocardial Perfusion Scan Nuc Med 03/25/18 0000 Signed Impressions: Service Date/Time: Sunday, March 25, 2018 09:02 - CONCLUSION: There may be some ischemia in the mid to lower septal region despite normal ejection fraction and wall motion. RISK CATEGORY: Low (<1%% Annual Mortality Rate) Tadeo Sanchez MD Chest X-Ray 03/24/18 0956 Signed Impressions: Service Date/Time: February 10:08 - CONCLUSION: Normal examination except for borderline cardiomegaly. Tadeo Sanchez MD Objective Remarks GENERAL: Well-developed well-nourished overweight female patient, INAD. Awake and alert. Lying in bed. Appears slightly uncomfortable secondary to back pain. SKIN: Warm and dry. HEAD: Atraumatic. Normocephalic. EYES: Pupils equal round and reactive. Extraocular motions intact. No scleral icterus. No injection or drainage. ENT: Nose without bleeding or purulent drainage. Airway patent. MMM. NECK: Trachea midline. CARDIOVASCULAR: Regular rate and rhythm without murmurs, gallops, or rubs. RESPIRATORY: Clear to auscultation. Breath sounds equal bilaterally. No wheezes , rales, or rhonchi. GASTROINTESTINAL: Abdomen soft, non-tender, nondistended. No hepato-splenomegaly , or palpable masses. No guarding. MUSCULOSKELETAL: BLE no cyanosis, clubbing or edema noted. No calf tenderness. NEUROLOGICAL: Awake and alert. Cranial nerves II through XII grossly intact. Motor and sensory grossly within normal limits. No focal neurologic findings. Normal speech. PSYCHIATRIC: Appropriate mood and affect. Normal judgment and insight. Medications and IVs Current Medications Medications (Trade) Dose Ordered Sig/Graciela Route Start Time Stop Time Status Last Admin (NS Flush) 2 ml UNSCH PRN IV FLUSH 03/24/18 14:45 (NS Flush) 2 ml BID IV FLUSH 03/24/18 21:00 03/25/18 10:58 (Tylenol) 500 mg Q4H PRN PO 03/24/18 14:45 03/24/18 20:20 (Zofran Inj) 4 mg Q6H PRN IV PUSH 03/24/18 14:45 ([place] 7.5-325 Mg) 1 tab Q4H PRN PO 03/24/18 15:30 (Duoneb Neb) 1 ampule Q4HR NEB PRN INH 03/24/18 15:30 (Catapres) 0.1 mg Q4H PRN PO 03/24/18 15:30 (Protonix) 40 mg DAILY PO 03/24/18 15:30 03/25/18 10:57 (Norvasc) 2.5 mg DAILY PO 03/25/18 13:00 03/25/18 12:57 Sodium Chloride 1,000 ml @ 125 mls/hr Q8H IV 03/25/18 12:18 03/25/18 20:17 03/25/18 12:57 A/P Assessment and Plan 52-year-old female the presents to ED with a complaint of chest discomfort. Chest pain with abnormal MPS showing There may be some ischemia in the mid to lower septal region despite normal ejection fraction and wall motion. Cardiology consulted. Patient NPO for scheduled cardiac cath -keep NPO and on IVF -follow up after cardiac catheterization -continue to monitor on cardiac telemetry Sinus bradycardia, asymptomatic -obtain TSH level Low back pain s/p recent injury at work -K thermia pad DVT prophylaxis -bilateral SCD/LIONEL hose Discharge Planning pending cardiac catheterization and cardiology clearance Radha Kaye Mar 25, 2018 14:34
--- NOTE | 2018-03-25 15:09 | MB ---
cc: Drake Turner DO DATE: 03/25/2018 REASON FOR CONSULTATION: Chest pain, abnormal stress test. HISTORY OF PRESENT ILLNESS: Flaco Shane is a pleasant 52-year-old female who presented to [facility] Emergency Room due to chest discomfort and dizziness. Apparently, the patient woke up and had some mild chest discomfort which was on the left side of her chest. It has been constant since that time, but has waxed and waned in intensity. She states that she decided to go to work and while at work she was doing light duty (previously hurt her back) and so unable to do significant work (she started having a little more pain). She thought maybe that she did not feel well because she no eaten or drank that morning and so she drank a little bit of coffee, but felt worse at that time. She also started feeling somewhat dizzy and lightheaded. She denies any palpitations. She was ruled out for a myocardial infarction and underwent stress testing which showed possible ischemia and so I was asked to see her for consideration of cardiac catheterization. PAST MEDICAL HISTORY: Chronic low back pain. PAST SURGICAL HISTORY: 1. . 2. Appendectomy. 3. Tubal ligation. 4. Hysterectomy. ALLERGIES: NO KNOWN DRUG ALLERGIES. MEDICATIONS: Tramadol 100 mg every 6 hours as needed for pain. FAMILY HISTORY: Denies premature coronary artery disease or sudden cardiac within the family. SOCIAL HISTORY: She denies tobacco or drug abuse. She does occasionally drink alcohol. 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 REVIEW OF SYSTEMS: Fourteen systems were reviewed including osteopathic pertinent positives and negatives above, otherwise negative. PHYSICAL EXAMINATION: VITAL SIGNS: Temperature 98.5, heart rate 50, blood pressure 121/54, respirations 18, pulse oximetry 98% on room air. GENERAL: The patient appears well, in no acute distress, alert, awake and oriented x3. HEENT: Extraocular muscles intact. Mucous membranes moist. NECK: Supple. No JVD at 45 degrees. No carotid bruits heard bilaterally. Carotid upstrokes brisk in nature. HEART: Regular rate and rhythm. Positive for and second heart sounds with no murmurs, gallops or rubs. LUNGS: Clear to auscultation bilaterally. No wheezes, rales or rhonchi. ABDOMEN: Soft, nontender, nondistended. No organomegaly noted. EXTREMITIES: Show no clubbing, cyanosis or edema. Femoral and distal pulses intact bilaterally. NEUROLOGIC: No focal deficits. SKIN: Warm, dry and intact. OSTEOPATHIC: Mild lordosis, no kyphoscoliosis or paraspinal tender points. LABORATORY DATA: Hemoglobin 13.4, hematocrit 40.4, platelets 201. Potassium 3.7, BUN 19, creatinine 0.72. Troponin negative x3. Electrocardiogram (03/24/2018 at 17:45) Sinus bradycardia, incomplete right bundle branch block. IMPRESSIONS: 1. Chest pain, atypical for coronary insufficiency. 2. Abnormal pharmacologic nuclear stress test showing possible septal ischemia. 3. Obesity. 4. Chronic low back pain. RECOMMENDATIONS: 1. Ms. Shane presented with chest pain with some atypical and typical features of coronary insufficiency. 2. She underwent pharmacologic nuclear stress testing which showed a possible ischemia in the septal region. Unfortunately, her heart rates have been in the 40S to 50s and she cannot be placed on beta jude therapy. She also has had some borderline low blood pressures. Overall, it would be difficult to place her on any medications to try to treat this further medically. 3. I spoke with her about consideration of cardiac catheterization with risks, benefits and alternatives and she consents to undergo the procedure. 4. She will be left n.p.o. and taken to the lab this afternoon. We will plan for right radial access. 5. Depending on the results, further recommendations will be made. Thank you for allowing me to see Flaco Shane. If there are any questions, please do not hesitate to call. DO BIJU Chamberlain/MARTA , 02:10 PM , 03:08 PM
--- NOTE | 2018-03-25 15:13 | CATHPROC ---
[email or web address] HIS Report Study Information Study Number Admission Scheduled Start Study Start [id number] Mar 24 2018 2:32PM 03/25/2018 Mar 25 2018 2:15PM [place] Service Cardiac Catheterization Admit Source Facility Department Other [facility] [employer] Physician and Clinical Staff Initial Drake Sarabia Manager Residential Nikhil SERRA, Pop Other cathlab, cathlab Recorder Manuel Wu RCIS(BS) Scrub Lisette Fischer ,RT(R) Procedures Performed Procedure Location (Site) Vessel Name Coronary Angiograms LCA Left Coronary Coronary Angiograms RCA Right Coronary L Heart Cath Equipment Time Social Service Technician Description Size Mfg Part Number Used/Scraped TRANSDUCER, TRUWAVE [id number] 14:25 LIPSCOMB BORGES * Used W/STOCKCOCK *[id number] *[id number] [id number] *[id number] 14:25 [employer] PACK, CCL CUSTOM * Used *[id number] 14:25 [employer] SUPPORT, ARTERIAL ADULT [id number] *[id number] Used BAND, RADIAL COMPRESSION TR [id number] 15:00 [employer] 24CM Used SHORT 24 *[id number] 14:25 [employer] WIRE, EXCHANGE 260CM 3MMJ 260CM Used *[id number] 14:25 NAMIC MANIFOLD, 4 PORT * Used *[id number] 14:25 [employer] OMNIPAQUE, 350 MG, 150ML 150ML [id number] Used [id number] 14:25 [employer] BLANKET,WARM AIR CCL * Used *[id number] SHEATH, FR6 TRANSRADIAL [id number] 14:25 [employer] FR 6 Used SLENDER 10CM *[id number] History: Allergies Allergy Reaction No Known Allergies History: Risk Factors Family History of Hypertension Dyslipidemia Previous MN Previous Heart Failure Premature CAD No No No No No Prior Valve Prior PCI Prior CABG Surgery No No No Cerebrovascular Peripheral Artery Chronic Lung On Dialysis Diabetes Disease Disease Disease No No No No No History: Symptoms/Diagnosis Selection Items Chest pain History: Stress Tests Stress or Imaging Studies Performed Yes Standard Exercise Stress Test No Stress Echo No Stress Test SPECT Stress Test SPECT Result Stress Test SPECT Ischemia Risk/Extent Yes Positive Low Stress Test CMR No Cardiac CTA Coronary Calcium Score No No History: Other Current Smoker No Labs Hgb (g/dl) Hct (%) WBC (l/cumm) Platelets (thousands) 11.60-17.00 35.00-51.00 4.00-11.00 150.00-450.00 13.4 40.4 8.3 201 BUN (mg/dl) Creatinine (mg/dl) BUN:Creatinine (1:x) 7.00-18.00 0.50-1.30 10.00-20.00 19 0.7 27.1 Na (meq/l) K (meq/l) 136.00-145.00 3.50-5.10 140 3.7 Troponin I (ng/ml) CPK-MB (ng/ML) 0.02-0.05 0.50-3.60 0.02 Not Drawn Medication Medication Total Dose (Bolus/Oral) Medication Total Dosage/Unit 1% XYLOCAINE 2 mL FENTANYL 50 mcg RADIAL COCKTAIL 5 mL (Bolus) Medications (Bolus/Oral) Medication Time Given Dosage/Unit Administered By Reason FENTANYL 03/25/2018 2:42:59 PM 25 mcg Pop Tejeda RN 25 mcg FENTANYL given in lab by Pop Tejeda RN in Left Antecubital via Peripheral IV. Ordered by Drake Justice 1% XYLOCAINE 03/25/2018 2:43:26 PM 2 mL Drake Turner 2 mL 1% XYLOCAINE given in lab by Drake Turner in Right Radial via Subcutaneous. FENTANYL 03/25/2018 2:46:20 PM 25 mcg Pop Tejeda RN 25 mcg FENTANYL given in lab by Pop Tejeda RN in Left Antecubital via Peripheral IV. Ordered by Drake Justice. Ntg 200mcg Verapamil 2.5mg Heparin RADIAL COCKTAIL 03/25/2018 2:46:35 PM 5 mL (Bolus) Pop Tejeda RN 3000U 5 mL (Bolus) RADIAL COCKTAIL given in lab by Pop Tejeda RN via Radial. Using [Solution Name]. Order ed by Drake Turner Reason: Ntg 200mcg Heparin 4000U. Medication (Drip) Medication Time Given Dosage/Unit Concentration/Unit Diluent (ml) Solution IV Solutions 03/25/2018 2:15:18 PM 0 mL (IV) 500 NaCl .9 Patient arrived on IV Solutions in Left Antecubital via Peripheral IV. Pump/Drip Flow = 20 ml/hr usin g NaCl .9. Initial Case Assessment Cardiovascular HR Rhythm NIBP Chest Pain 48 sbrady 137/72 0 Edema Present Skin color Skin None Normal Warm Dry Circulatory - Right Pulses Dorsalis Pedis Femoral Radial 1 1 1 Scale (0,1,2,3,4,d) Scale (0,1,2,3,4,d) Neurological State Oriented to time-place- Alert Moves all extremities person Respiration - General Respiration Rate SpO2 (%) (B/min) 15 95 Final Case Assessment Cardiovascular HR Rhythm NIBP Chest Pain 58 sbrady 143/75 0 Edema Present Skin color Skin None Normal Warm Dry Circulatory - Right Pulses Dorsalis Pedis Femoral Radial 1 1 1 Scale (0,1,2,3,4,d) Scale (0,1,2,3,4,d) Neurological State Oriented to time-place- Alert Moves all extremities person Respiration - General Respiration Rate SpO2 (%) (B/min) 15 95 Chronological Log Time Study Chronological Log 14:15:09 Patient arrived via Bed. 14:15:10 Patient Name, D.O.B, / Armband Verified By R.N. 14:15:10 Consent signed by the physician and the patient and verified by the [employer] staff. 14:15:11 Pre-op and post- op instructions given; patient acknowledges understanding of instructions. 14:15:12 Verbal Stimulation=2 Physical Stimulation=2 Airway=2 Respiration=2 TOTAL=8. (0=absent, 1=li mited, 2=present) 14:15:12 Presedation assessment performed by [employer]ic RN. 14:15:13 Allens test performed on the right radial and ulnar artery. POSITIVE. 14:15:14 Immediate Presedation assesment performed by physician. 14:15:14 Patient has been NPO for More than 6Hrs. 14:15:15 Skin Breakdown- none per patient 14:15:15 Patient Warmer Placed on the Table. 14:15:16 Franklyn Prominences Protected 14:15:17 A # 20 IV was noted in the Antecubital (left). Grade = 0 14:15:18 Patient arrived on IV Solutions in Left Antecubital via Peripheral IV. Pump/Drip Flow = 20 ml/hr using NaCl .9. 14:15:18 History and physical on the chart or being dictated. Vitals capture started with the following parameters, Patient=Adult, Interval=5 min, Initial Pr qoprrg=808 mmHg, 14:25:36 Deflation Rate=5 mmHg, Cuff placed on Left Arm Assessment: Initial Case, HR=48 BPM, Rhythm=sbrady, LELT=332/72 mmhg, Chest Pain=0, Edema=None, Color=Normal, Skin = Warm, Dry 14:25:37 Right Pulses: Vernon Ped=1, Femoral=1, Radial=1 Neurological: State=Alert, Ox3, CHAMPION Respiration: Resp=15 B/min, SpO2=95 % 14:25:40 Reference ECG taken 14:26:14 HR=51 bpm, TNMD=322/72 mmhg, SpO2=97.0 %, Resp=16 B/min, Pain=0, Sorin=10, [place]=2 14:31:13 HR=53 bpm, YKEW=106/72 mmhg, SpO2=98.0 %, Resp=19 B/min, Pain=0, Sorin=10, [place]=2 14:31:31 Right Radial and groin(s) prepped with 2% chlorhexidine, and draped after a 3 min. waiting time. 14:34:36 MD paged 14:36:16 HR=50 bpm, GOAJ=413/70 mmhg, SpO2=99.0 %, Resp=13 B/min, Pain=0, Sorin=10, [place]ad[place]=2 14:36:38 MD arrived. 14:36:45 Contrast Scanned 14:36:45 Immediate Presedation assesment performed by physician. 14:38:48 Pressure channel 1 zeroed. 14:41:15 HR=53 bpm, IRKN=035/74 mmhg, SpO2=98.0 %, Resp=15 B/min, Pain=0, Sorin=10, Guad[place]=2 Time Out. Correct patient, correct procedure, correct physician, power injector not loaded with contrast with surgical 14:41:22 team present. Time Out Concurred by MD and individual staff in procedure. 14:42:19 Case Start 14:42:21 Verbal Stimulation=2 Physical Stimulation=2 Airway=2 Respiration=2 TOTAL=8. (0=absent, 1=li mited, 2=present) 14:42:59 25 mcg FENTANYL given in lab by Pop Tejeda RN in Left Antecubital via Peripheral IV. Orde red by Drake Turner 14:43:26 2 mL 1% XYLOCAINE given in lab by Drake Turner in Right Radial via Subcutaneous. 14:44:55 Access site was Right Radial Artery. A SHEATH, FR6 TRANSRADIAL SLENDER 10CM FR 6 was advanced into the Radial (right) using the Perc utaneous 14:45:00 technique. 14:46:14 HR=54 bpm, VONJ=678/68 mmhg, SpO2=99.0 %, Resp=10 B/min, Pain=0, Sorin=10, [place]=2 14:46:20 25 mcg FENTANYL given in lab by Pop Tejeda RN in Left Antecubital via Peripheral IV. Orde red by Drake Turner 5 mL (Bolus) RADIAL COCKTAIL given in lab by Pop Tejeda RN via Radial. Using [Solution Name]. Ordered by Johnny, 14:46:35 Drake Mcdowell Reason: Ntg 200mcg Heparin 4000U. A JR 4.0 INFINITI CATHETER FR 5 was advanced over a wire. OMNIPAQUE, 350 MG, 150ML 150ML was us ed for 14:47:17 injections. Recorded Pressure: LV, HR=53, Condition=Condition 1 14:50:48 (Left Ventricle) LV 140/3/13 Recorded Pressure: LV, Ao, HR=52, Condition=Condition 1 14:51:09 (Left Ventricle) LV 141/2/14, (Aorta) Ao 141/67/96 14:51:13 HR=55 bpm, FXZX=549/74 mmhg, SpO2=99.0 %, Resp=15 B/min, Pain=0, Sorin=10, [place]ad[place]=2 Recorded Pressure: Ao, HR=54, Condition=Condition 1 14:51:25 (Aorta) Ao 134/62/91 14:52:05 The RCA was injected and visualized at various angles. OMNIPAQUE, 350 MG, 150ML 150ML used . After removing the current catheter a JL 3.5 INFINITI CATHETER FR 5 was advanced over a WIRE, E XCHANGE 260CM 14:53:07 3MMJ 260CM. 14:56:00 The LCA was injected and visualized at various angles. OMNIPAQUE, 350 MG, 150ML 150ML used . 14:56:14 HR=56 bpm, QLHI=971/75 mmhg, SpO2=99.0 %, Resp=18 B/min, Pain=0, Sorin=10, Guad[place]=2 14:56:19 The LCA was injected and visualized at various angles. OMNIPAQUE, 350 MG, 150ML 150ML used . Recorded Pressure: Ao, HR=61, Condition=Condition 1 14:57:55 (Aorta) Ao 136/65/95 14:58:00 Catheter was removed Radial Compression Device Used. 9 mLs of air placed in BAND, RADIAL COMPRESSION TR SHORT 24 24C M. Affected 15:00:10 hand 98 % O2 saturation. 15:01:17 HR=50 bpm, DQRC=842/68 mmhg, SpO2=99 %, Resp=17 B/min, Pain=0, Sorin=10, Guad[place]=2 15:02:16 Case End 15:02:35 Catheter(s) removed without difficulty Assessment: Final Case, HR=58 BPM, Rhythm=sbrady, IPNB=111/75 mmhg, Chest Pain=0, Edema=None, Color=Normal, Skin = Warm, Dry 15:03:00 Right Pulses: Vernon Ped=1, Femoral=1, Radial=1 Neurological: State=Alert, Ox3, CHAMPION Respiration: Resp=15 B/min, SpO2=95 % 15:03:01 Sterile dressing applied to site 15:03:01 No case complications noted. 15:03:02 Cine recording checked. 15:03:04 Bedside Report will be given. 15:03:05 Verbal Stimulation=2 Physical Stimulation=2 Airway=2 Respiration=2 TOTAL=8. (0=absent, 1=li mited, 2=present) 15:04:15 A Left Heart Cath was performed. 15:06:16 HR=43 bpm, PAKF=789/76 mmhg, SpO2=96 %, Resp=19 B/min, Pain=0, Sorin=10, Guadarrama=2 15:09:40 Patient moved to stretcher 15:09:42 Vitals capture stopped. End Study - Contrast Media Used In Study Contrast Total Opened (mL) Total Used (mL) Total Wasted (mL) Omnipaque 40 40 0 End Study - Maximum Contrast Load Max Contrast Load (mL) 735.7 End Study - Radiation Exposure Fluoro Time (minutes) 4.8 End Study - Patient Disposition Complications Transferred To Interventional Outcome No [employer] Holding No attempt made
[2018-03-25] MEDS ORDERED: MISC INFORMATION XX ONE (15:15)
--- NOTE | 2018-03-25 16:11 | MA ---
cc: Drake Turner DO DATE: 03/25/2018 DATE OF PROCEDURES: 03/25/2018. PROCEDURE: Left heart catheterization, coronary angiogram. PREPROCEDURE DIAGNOSIS: Chest pain, abnormal stress test. POSTPROCEDURE DIAGNOSIS: Mild coronary artery disease. MEDICATIONS: Fentanyl 50 mcg, nitro 200 mcg, heparin 4000 units. CONTRAST: 40 mL FLUOROSCOPY: 4.8 minutes. MODERATE SEDATION: 0 minutes. FRAILTY SCORE: 2. ESTIMATED BLOOD LOSS: 10 mL PROCEDURAL SUMMARY: Kerry Shane is a pleasant 52-year-old female who presented to [facility] Emergency Room due to chest pain. She underwent stress testing and was found to have ischemia noted on stress testing. We were unable to treat her further medically as her blood pressure has been borderline low and her heart rates. She was recommended consideration of cardiac catheterization. Risks, benefits and alternatives were explained to her and she consented to such. She was brought to the lab and prepped in the usual sterile fashion. The right radial artery was accessed using a modified Seldinger technique and placement of a 5/6 Palestinian slender sheath. This was easily aspirated and flushed. A JR4 was advanced over a J-wire to the ascending aorta and across the aortic valve into the left ventricle for measurement of left ventricular pressure. This was pulled back across the aortic valve showing no significant gradient of aortic stenosis. JR4 was used for selective angiography of the right coronary artery system. This is exchanged out for a JL3.5, which was used to perform selective angiography of the left coronary artery system. The JL 3.5 was removed over a J-wire. A radial band was placed over the arteriotomy site for hemostasis. 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 FINDINGS: LEFT MAIN: Normal-sized vessel with adequate reflux and no disease. It bifurcates into an LAD and circumflex. LAD: Normal-sized vessel with no significant disease throughout the proximal portion. The mid to distal portion appears to have mild luminal irregularities at most. It gives off 1 major diagonal with no significant disease. LEFT CIRCUMFLEX: Normal-sized vessel with mild luminal irregularities. It does have some mild tortuosity throughout the major obtuse marginal which does bifurcate into an upper and lower branch, but no significant disease throughout. RCA: Normal-sized vessel with mild luminal irregularities. No significant disease throughout. LVEDP: 14. IMPRESSION: 1. Atypical chest pain. 2. Abnormal stress test. 3. Obesity. 4. Chronic low back pain. RECOMMENDATIONS: 1. Ms. Shane appears to have minimal coronary artery disease at most and she will be recommended continued medical therapy. 2. We will plan to check a 2D echo to look at her overall left ventricular function, cardiac structure and possible valvulopathies. 3. She will continue on Norvasc 2.5 mg daily as her blood pressure was higher than preoperatively during the case as well as its antianginal effects. 5. If stable, in the morning, can be discharged home. Thank you for allowing me to see Kerry Shane. If there are any questions, please do not hesitate to call. DO BIJU Chamberlain/SB , 03:29 PM , 04:10 PM
--- NOTE | 2018-03-25 18:24 | ECHRPT ---
Indication: Chest Pain CONCLUSIONS The left ventricular systolic function is normal with an estimated ejection fraction in the range of 55-60%. There is trace tricuspid valve regurgitation. Trivial pulmonary valve regurgitation. BP: 136 / 69 HR: Rhythm: MEASUREMENTS (Male / Female) Normal Values Technical Quality:Technically difficult study 2D ECHO LV Diastolic Diameter PLAX 4.6 cm 4.2 - 5.9 / 3.9 - 5.3 cm LV Systolic Diameter PLAX 2.9 cm IVS Diastolic Thickness 1.0 cm 0.6 - 1.0 / 0.6 - 0.9 cm LVPW Diastolic Thickness 0.9 cm 0.6 - 1.0 / 0.6 - 0.9 cm LV Relative Wall Thickness 0.4 RV Internal Dim ED PLAX 3.5 cm LVOT Diameter 2.2 cm LA Systolic Diameter LX 3.5 cm 3.0 - 4.0 / 2.7 - 3.8 cm M-MODE Aortic Root Diameter MM 2.1 cm LA Systolic Diameter MM 3.6 cm LA Ao Ratio MM 1.7 AV Cusp Separation MM 2.0 cm DOPPLER AV Peak Velocity 191.0 cm/s AV Peak Gradient 14.6 mmHg LVOT Peak Velocity 110.0 cm/s LVOT Peak Gradient 4.8 mmHg AV Area Cont Eq pk 2.2 cm MV Area PHT 3.3 cm Mitral E Point Velocity 89.3 cm/s Mitral A Point Velocity 74.5 cm/s Mitral E to A Ratio 1.2 LV E' Lateral Velocity 13.5 cm/s Mitral E to LV E' Lateral Ratio 6.6 LV E' Septal Velocity 9.6 cm/s Mitral E to LV E' Septal Ratio 9.4 TR Peak Velocity 240.0 cm/s TR Peak Gradient 23.0 mmHg Right Atrial Pressure 10.0 mmHg Pulmonary Artery Systolic Pressu 33.0 mmHg Right Ventricular Systolic Press 33.0 mmHg FINDINGS LEFT VENTRICLE The left ventricular systolic function is normal with an estimated ejection fraction in the range of 55-60%. Wall thickness is normal. Normal left ventricular size. No regional wall motion abnormalities are present. RIGHT VENTRICLE Normal right ventricular size and systolic function. LEFT ATRIUM The left atrial size is normal. RIGHT ATRIUM The right atrial size is normal. ATRIAL SEPTUM Normal atrial septal thickness without atrial level shunting by limited color doppler interrogation. AORTA The aortic root and proximal ascending aorta are normal in size on limited imaging. MITRAL VALVE Structurally normal mitral valve. No mitral valve stenosis or regurgitation. AORTIC VALVE Trileaflet aortic valve. No aortic valve stenosis or regurgitation. TRICUSPID VALVE Structurally normal tricuspid valve. There is trace tricuspid valve regurgitation. The estimated pulmonary arterial pressure is 33 mmHg. PULMONARY VALVE Trivial pulmonary valve regurgitation. VESSELS The inferior vena cava is normal in size. PERICARDIUM No pericardial effusion. Drake Turner DO (Electronically Signed) Final Date:25 March 2018 18:23
[2018-03-25] MEDS: ACETAMINOPHEN 500 MG CPLT PO PRN (20:43)
[2018-03-25] MEDS: traMADol HCL 50 MG TAB PO PRN (20:44)
[2018-03-26] VITALS: BP 109/55; PULSE 61; RESP 18; TEMP 97.8; O2SAT 95
[2018-03-26 00:01] VITALS: PULSE 53
[2018-03-26 03:54] VITALS: PULSE 53
[2018-03-26 04:00] VITALS: BP 136/60; PULSE 49; RESP 18; TEMP 97.4; O2SAT 97
[2018-03-26] MEDS: traMADol HCL 50 MG TAB PO PRN (04:34)
[2018-03-26 06:21] LABS: AUTOMATED NEUTROPHIL # 3.1 TH/MM3 (1.8-7.7); BASOPHIL % 0.6 % (0.0-2.0); EOSINOPHIL # 0.3 TH/MM3 (0-0.4); EOSINOPHIL % 4.9 % (0.0-4.0); HEMATOCRIT 37.7 % (35.0-46.0); HEMOGLOBIN 12.8 GM/DL (11.6-15.3); LYMPH % 31.7 % (9.0-44.0); LYMPHOCYTE # 1.8 TH/MM3 (1.0-4.8); MEAN CELL VOLUME 81.8 FL (80.0-100.0); MEAN CORPUSCULAR HEMOGLOBIN 27.7 PG (27.0-34.0); MEAN CORPUSCULAR HGB CONC 33.9 % (32.0-36.0); MEAN PLATELET VOLUME 8.5 FL (7.0-11.0); MONO % 6.5 % (0.0-8.0); MONOCYTE # 0.4 TH/MM3 (0-0.9); NEUT % 56.3 % (16.0-70.0); PLATELET COUNT 188 TH/MM3 (150-450); RED CELL DISTRIBUTION WIDTH 15.9 % (11.6-17.2); WHITE BLOOD COUNT 5.6 TH/MM3 (4.0-11.0)
[2018-03-26 06:41] LABS: BICARBONATE 27.5 MEQ/L (21.0-32.0); CALCIUM 8.3 MG/DL (8.5-10.1); CREATININE 0.53 MG/DL (0.50-1.00)
[2018-03-26] MEDS: SODIUM CHLORIDE 0.9% FLUSH 10 ML FLUSH IV FLUSH SCH (07:13)
[2018-03-26 07:28] VITALS: BP 124/58; PULSE 51; RESP 17; TEMP 97.4; O2SAT 95
[2018-03-26] MEDS: amLODIPine BESYLATE 5 MG TAB PO SCH (07:31)
[2018-03-26] MEDS: PANTOPRAZOLE SOD 40 MG DELAYED RELEASE TAB PO SCH (07:31)
[2018-03-26 08:00] VITALS: PULSE 83
[2018-03-26] MEDS ORDERED: ASPI81 CHEW (08:02)
[2018-03-26] MEDS ORDERED: AMLO5 PO (08:02)
--- NOTE | 2018-03-26 08:03 | HHI.DCPOC ---
Discharge Care Plan Diagnosis: (1) Chest pain Your Health Problems Are: Difficulty with ADL Exercise Tolerance Goals to Promote Your Health * To prevent worsening of your condition and complications * To maintain your health at the optimal level Directions to Meet Your Goals Take your medications as prescribed Follow your dietary instruction Follow activity as directed Keep your appointments as scheduled Take your immunizations and boosters as scheduled If your symptoms worsen call your PCP, if no PCP go to Urgent Care Center or Emergency Room Smoking is Dangerous to Your Health. Avoid second hand smoke Call the 24-hour hour crisis hotline for domestic abuse at Stefan Christine MD Mar 26, 2018 08:03
[2018-03-26] MEDS ORDERED: ASPIRIN 81 MG CHEW TAB CHEW SCH (09:00)
[2018-03-26] MEDS ORDERED: VENTAER INH (10:59)
--- NOTE | 2018-03-26 10:59 | HHI.PR ---
Subjective Remarks F/U CP hx Asthma. Intermittent squeezing chest pain with shortness of breath consistent with asthma. Discussed with nursing Objective Vitals Vital Signs Date Time Temp Pulse Resp B/P (MAP) Pulse Ox O2 Delivery O2 Flow Rate FiO2 03/26/18 08:00 Room Air 03/26/18 08:00 83 03/26/18 07:28 97.4 51 17 124/58 (80) 95 03/26/18 04:00 97.4 49 18 136/60 (85) 97 03/26/18 03:54 53 03/26/18 00:01 53 03/26/18 00:00 Room Air 03/26/18 00:00 97.8 61 18 109/55 (73) 95 03/25/18 20:00 97.6 57 16 137/64 (88) 96 03/25/18 15:26 100 Room Air 03/25/18 11:53 98.5 51 18 121/54 (76) 98 I/O 03/25/18 03/25/18 03/25/18 03/26/18 03/26/18 03/26/18 07:00 15:00 23:00 07:00 15:00 23:00 Intake Total 0 ml 1060 ml Balance 0 ml 1060 ml Intake Oral 360 ml IV Total 0 ml 700 ml # Voids 1 # Bowel Movements 0 Result Diagram: 03/26/18 0500 03/26/18 0500 Imaging Last Impressions Myocardial Perfusion Scan Nuc Med 03/25/18 0000 Signed Impressions: Service Date/Time: Sunday, March 25, 2018 09:02 - CONCLUSION: There may be some ischemia in the mid to lower septal region despite normal ejection fraction and wall motion. RISK CATEGORY: Low (<1%% Annual Mortality Rate) Tadeo Sanchez MD Chest X-Ray 03/24/18 0956 Signed Impressions: Service Date/Time: February 10:08 - CONCLUSION: Normal examination except for borderline cardiomegaly. Tadeo Sanchez MD Objective Remarks GENERAL: Well-developed well-nourished overweight female patient SKIN: Warm and dry. CARDIOVASCULAR: Regular rate and rhythm without murmurs, gallops, or rubs. RESPIRATORY: Clear to auscultation. Breath sounds equal bilaterally. No wheezes , rales, or rhonchi. GASTROINTESTINAL: Abdomen soft, non-tender, nondistended. No hepato-splenomegaly , or palpable masses. No guarding. MUSCULOSKELETAL: BLE no cyanosis, clubbing or edema noted. No calf tenderness. NEUROLOGICAL: Awake and alert. Cranial nerves II through XII grossly intact. Motor and sensory grossly within normal limits. No focal neurologic findings. Normal speech. PSYCHIATRIC: Appropriate mood and affect. Normal judgment and insight. Procedures cardiac cath A/P Problem List: (1) Chest pain ICD Code: R07.9 - Chest pain, unspecified Status: Acute Assessment and Plan 52-year-old female the presents to ED with a complaint of chest discomfort. Chest pain with abnormal MPS showing There may be some ischemia in the mid to lower septal region despite normal ejection fraction and wall motion. Cardiology consulted. Cardiac cath showed mild CAD. Continue aspirin unable to start beta-jude secondary to bradycardia. LDL 93 patient wants weight loss and dietary change before pharmacal therapy Hypertension. Continue Norvasc Asthma exacerbation likely cause of chest pain. No active wheeze. Albuterol as needed Sinus bradycardia, asymptomatic Low back pain s/p recent injury at work -K thermia pad DVT prophylaxis -bilateral SCD/LIONEL hose Discharge Planning Discharge patient to home Condition on discharge: Improved Regular Diet as tolerated Ad Jennifer activity no driving Rx written: Aspirin, Norvasc and albuterol Follow-up with primary care physician in 1 week Problem Qualifiers (1) Chest pain: Qualified Codes: R07.9 - Chest pain, unspecified Stefan Christine MD Mar 26, 2018 10:59
[2018-03-26 11:07] LABS: CHOLESTEROL/ HDL RATIO 2.84 RATIO; HDL CHOLESTEROL 57.2 MG/DL (40.0-60.0)
[2018-03-26 12:48] LABS: ALBUMIN 3.2 GM/DL (3.4-5.0); DIRECT BILIRUBIN ADULT 0.1 MG/DL (0.0-0.2)
[2018-03-26 12:50] LABS: INDIRECT BILIRUBIN 0.4 MG/DL (0.0-0.8); TOTAL BILIRUBIN ADULT 0.5 MG/DL (0.2-1.0); TOTAL PROTEIN 6.8 GM/DL (6.4-8.2)
== END 2018-03-26 11:34 | disposition home or self-care (01) ==
LOC: NEPC 09:03 → NEDA 14:32 → NEPHCDU 15:23 → HCIS 03-25 14:23 → N04B 03-25 19:18
PROVIDERS: ADMIT Internal Medicine; ATTEND Internal Medicine
DX: R07.89 Other chest pain (principal); R00.1 Bradycardia, unspecified; R06.02 Shortness of breath; R11.0 Nausea; I25.10 Atherosclerotic heart disease of native coronary artery without angina pectoris; R94.39 Abnormal result of other cardiovascular function study; I10 Essential (primary) hypertension; I45.10 Unspecified right bundle-branch block; M54.5 Low back pain; G89.29 Other chronic pain; E66.9 Obesity, unspecified
CPT/HCPCS: 71045; 78452; 80048; 80061; 80076; 81001; 82550; 82552; 84443; 84484; 85025; 87804; 93005; 93017; 93306; 93458; 96374; 99285; A9502; C1769; C1893; G0378; J1644; J2405; J2785; J3010; J7030; Q9967